=== PATIENT | female | born 1995 | race Caucasian/White ===

== ENCOUNTER → 2016-11-17 | Outpatient (CLI) | payer OTHER ==
[2016-11-17 16:58] LABS: BASO % 0.4 % (0.0-1.0); EOS # 0.1 K/mm3 (0.0-0.50); EOS % 2.2 % (0.0-3.0); LARGE UNSTAINED CELL # 0.1 K/mm3 (0.0-0.4); LARGE UNSTAINED CELL % 1.7 % (0.0-4.0); LYMPH # 2.1 K/mm3 (1.5-6.5); LYMPH % 36.6 % (24.0-44.0); MEAN CORPUSCULAR HEMOGLOBIN 31.7 pg (27.0-33.0); MEAN CORPUSCULAR HGB CONC 33.4 g/dl (32.0-36.5); MEAN CORPUSCULAR VOLUME 94.9 fl (80.0-96.0); MONO # 0.3 K/mm3 (0.0-0.8); MONO % 5.2 % (0.0-5.0); NEUTROPHILS # 2.9 K/mm3 (1.8-7.7); NEUTROPHILS % 53.9 % (36.0-66.0); PLATELET COUNT, AUTOMATED 235 k/mm3 (150-450); RED CELL DISTRIBUTION WIDTH 12.1 % (11.5-14.5); WHITE BLOOD COUNT 5.4 K/mm3 (4.0-10.0)
[2016-11-17 19:11] LABS: FREE T4 0.95 NG/DL (0.76-1.46)
== END ==
LOC: M LAB 16:18
PROVIDERS: ATTEND Obstetrics & Gynecology
DX: N92.1 Excessive and frequent menstruation with irregular cycle (principal)

== ENCOUNTER → 2016-12-04 | Day surgery (SDC) | payer OTHER ==
[~2016-12-04] VITALS: Ht 165.1 cm; Wt 65.8 kg
[~2016-12-04] MED LIST: DICY20TA11 PO; GLYCOPYRROLATE INJ 0.2 MG/ML 2 ML VIAL As Ordered ONE; IBUPROFEN 600 MG TAB PO PRN; KETOROLAC 60 MG/2 ML VIAL (J1885) As Ordered ONE; LIDOCAINE 2% INJ 100 MG/5 ML SDV (FOR ANES.) As Ordered ONE; LR 1,000 ML IV SCH; METOCLOPRAMIDE INJ 10MG/2ML VIAL (J2765) IV PRN; MIDAZOLAM INJ 2 MG/2 ML VIAL (J2250) As Ordered ONE; NEOSTIGMINE 1MG/ML 5 ML SYRINGE (J2710) As Ordered ONE; NORCO, ANEXSIA 5/325MG TABLET (HYDROcodone/ACETAMINOPHEN) PO PRN; ONDANSETRON 4MG/2ML VIAL (J2405) As Ordered ONE; ONDANSETRON 4MG/2ML VIAL (J2405) IV PRN; PERCOCET 5MG/325MG TAB As Ordered ONE; PERCOCET 5MG/325MG TAB PO PRN; PROPOFOL 200 MG/20 ML VIAL As Ordered ONE; PROZ20CA11 PO; ROCURONIUM BROMIDE 50 MG/5 ML VIAL As Ordered ONE; TYLE500T78 PO; XANA1TAB2 PO; dexameTHASONE 4 MG/ML 1ML VIAL (J1100) As Ordered ONE; fentaNYL 100 MCG/2 ML INJECTION (J3010) As Ordered ONE; fentaNYL 250 MCG/5 ML INJECTION (J3010) As Ordered ONE
[2016-12-04 07:46] LABS: CONTROL LINE UCG INT CTR LINE PRESENT
[2016-12-04] MEDS: fentaNYL 100 MCG/2 ML INJECTION (J3010) IV PRN ×4 (10:58→11:19)
--- NOTE | 2016-12-04 12:27 | RO ---
DATE OF PROCEDURE: 12/04/2016 PREPROCEDURE DIAGNOSES/INDICATION FOR SURGERY: Endometriosis history, pain, failed medication therapy. POSTPROCEDURE DIAGNOSES: Endometriosis history, pain, failed medication therapy. PROCEDURE: Robotic resection of endometriotic implants and laser ablation of endometriotic implants. SURGEON: Elizabeth Flores MD SUPERVISOR [employer] ACCOUNTS: Irma Van NP ANESTHESIA: General endotracheal anesthesia. BRIEF DESCRIPTION OF PROCEDURE AND FINDINGS: Uzma went to the operating room where sufficient general endotracheal anesthesia was induced. She was prepped, draped and positioned in the usual sterile fashion with the uterine manipulator placed. The bladder was emptied and attention was turned to the abdomen. A transverse semilunar incision was made over the line of her previous laparoscopic scar. Sharp and blunt dissection were continued through subcutaneous tissues to the level of the rectus fascia, which was elevated with Torin clamp, transversely incised, secured with #0 Vicryl sutures placed and the peritoneum, under direct visualization, was examined using the S retractor and then the Marcellus cannula used for the robot was placed. In open laparoscopic technique, CO2 insufflation was then begun. After adequate CO2 insufflation, the robot camera was used to visualize the peritoneal cavity. The upper abdomen is normal in appearance. We did take a couple of pictures of that as well. The anterior aspect of the lower abdomen was reassuring on the initial view. With Trendelenburg, we were able to see one left sided anterior area of what looked like brownish endometriotic implant. The cul-de-sac, as noted in the pictures, there was extensive evidence of endometriotic lesions and scarring, especially with annular lesions and scarring with what appeared to be fenestration of the peritoneum, very much consistent with endometriosis. There were also some chocolate cyst like material on both ovaries with evidence of what looked like endometriosis there. The ureters were carefully identified. Peristalsis seen and the anatomy mapped out on the right side. There was also a secondary ridge of the peritoneum more proximal to the midline. This was not peristalsing. It was also not pulsing. I am not sure if she has some sort of tissue in it. I did find slightly higher than normal on the side wall a ureter but this came down right through the branch of the vessels, as expected with the ureter, so although it coursed along the sidewalls a little bit more toward the ceiling than would be typically expected. It certainly originated at the pelvic brim in a totally normal spot. More posteriorly there was a secondary ridge that was not pulsing, so it did not appear to be vascular. It was not peristalsing either, but since we could see this change, we were careful not to injure that area as well. She does not have any previous films indicating anything unusual about that and she does have a previous pelvic sono that is relatively reassuring that it was a cyst. The PK and the scissors were used carefully to elevate, transect, and then cauterize as necessary any bleeding areas or areas of peritoneum over the cul-de-sac. We were careful not to disrupt the uterosacral ligaments themselves since of course she needs those. We were careful not to interrupt the peritoneum over the ureters. There were some areas where we simply pulled the peritoneum medially and we were able to then use the laser over that but first we resected in the cul-de-sac, which is where the majority of the endometriosis appeared to be. Having resected a large area and not wanting to completely denude the cul-de-sac, we then switched out to laser and used it in a fairly broad area over the cul-de-sac itself because of the extent of the endometriotic lesions. We then used it over the uterosacral as well. Again, over any other peritoneal implants. We were careful to shift the peritoneum so that we did not have any important structures as our backdrop. We were also careful to pay attention to the location of the bowel and bladder, and of course the ureters, and also to the tubes because there were some areas on the ovaries and we cauterized those, but we were careful to avoid any injury to the tubes, which are totally normal in appearance. We also laser ablated the area in the anterior broad ligament on the left as well, but again we were careful to identify the location of the ureter before we went there and to shift this medially and cephalad so as to avoid bladder and ureter there as well. After we had resected the amount of endometriosis that we could and then laser ablated the rest, we then ended the procedure with the CO2 allowed to escape the abdomen. The instruments removed. Uzma was removed from Trendelenburg. I then closed the facial wound at the umbilicus with #0 Vicryl retention sutures and the skin at all four wounds was closed with #3-0 Vicryl in a subcuticular stitch. Dry sterile dressings were applied. Estimated blood loss for the procedure was about 5 mL. Fluid replacement was Crystalloid. Complications: None. SPECIMEN: Endometriotic implants. CONDITION AND DISPOSITION: Uzma tolerated the procedure well and was recovering in the recovery room in good condition.
[2016-12-04 13:30] VITALS: BP 125/69
== END | disposition home or self-care (01) ==
LOC: M SDC 07:08
PROVIDERS: ATTEND Obstetrics & Gynecology
DX: N80.9 Endometriosis, unspecified (principal); F32.9 Major depressive disorder, single episode, unspecified; F41.9 Anxiety disorder, unspecified; M41.9 Scoliosis, unspecified; M51.9 Unspecified thoracic, thoracolumbar and lumbosacral intervertebral disc disorder; G43.909 Migraine, unspecified, not intractable, without status migrainosus; R06.83 Snoring; F17.210 Nicotine dependence, cigarettes, uncomplicated; Z88.1 Allergy status to other antibiotic agents; Z88.2 Allergy status to sulfonamides; Z88.8 Allergy status to other drugs, medicaments and biological substances; Z79.899 Other long term (current) drug therapy

== ENCOUNTER → 2017-02-03 | Outpatient (CLI) | payer OTHER ==
[~2017-02-03] MED LIST changes: -GLYCOPYRROLATE INJ 0.2 MG/ML 2 ML VIAL As Ordered ONE; +IBUP80TA PO; -IBUPROFEN 600 MG TAB PO PRN; -KETOROLAC 60 MG/2 ML VIAL (J1885) As Ordered ONE; -LIDOCAINE 2% INJ 100 MG/5 ML SDV (FOR ANES.) As Ordered ONE; -LR 1,000 ML IV SCH; -METOCLOPRAMIDE INJ 10MG/2ML VIAL (J2765) IV PRN; -MIDAZOLAM INJ 2 MG/2 ML VIAL (J2250) As Ordered ONE; -NEOSTIGMINE 1MG/ML 5 ML SYRINGE (J2710) As Ordered ONE; +NORC1TAB4 PO; -NORCO, ANEXSIA 5/325MG TABLET (HYDROcodone/ACETAMINOPHEN) PO PRN; +OMEP10CASR PO; -ONDANSETRON 4MG/2ML VIAL (J2405) As Ordered ONE; -ONDANSETRON 4MG/2ML VIAL (J2405) IV PRN; -PERCOCET 5MG/325MG TAB As Ordered ONE; -PERCOCET 5MG/325MG TAB PO PRN; -PROPOFOL 200 MG/20 ML VIAL As Ordered ONE; -ROCURONIUM BROMIDE 50 MG/5 ML VIAL As Ordered ONE; -dexameTHASONE 4 MG/ML 1ML VIAL (J1100) As Ordered ONE; -fentaNYL 100 MCG/2 ML INJECTION (J3010) As Ordered ONE; -fentaNYL 250 MCG/5 ML INJECTION (J3010) As Ordered ONE
[2017-02-03 13:45] LABS: BASO % 0.7 % (0.0-1.0); EOS # 0.2 K/mm3 (0.0-0.50); EOS % 3.1 % (0.0-3.0); LARGE UNSTAINED CELL # 0.1 K/mm3 (0.0-0.4); LYMPH # 1.6 K/mm3 (1.5-6.5); MEAN CORPUSCULAR HEMOGLOBIN 31.9 pg (27.0-33.0); MEAN CORPUSCULAR HGB CONC 33.5 g/dl (32.0-36.5); MEAN CORPUSCULAR VOLUME 95.2 fl (80.0-96.0); MONO # 0.5 K/mm3 (0.0-0.8); MONO % 6.5 % (0.0-5.0); NEUTROPHILS # 4.7 K/mm3 (1.8-7.7); NEUTROPHILS % 65.7 % (36.0-66.0); PLATELET COUNT, AUTOMATED 218 k/mm3 (150-450); RED CELL DISTRIBUTION WIDTH 12.3 % (11.5-14.5); WHITE BLOOD COUNT 7.1 K/mm3 (4.0-10.0)
== END ==
LOC: M LAB 12:11
PROVIDERS: ATTEND Nurse Practitioner Women's Health
DX: R10.32 Left lower quadrant pain (principal)

== ENCOUNTER 2017-04-19 07:00 | Emergency (ER) | payer OTHER ==
[~2017-04-19] VITALS: Ht 165.1 cm; Wt 72.7 kg
[~2017-04-19 07:00] MED LIST changes: -IBUP80TA PO; -NORC1TAB4 PO; -OMEP10CASR PO
[2017-04-19] MEDS ORDERED: NORC1TAB4 PO (07:14)
[2017-04-19] MEDS ORDERED: OMEP10CASR PO (07:14)
[2017-04-19] MEDS ORDERED: HYDROmorphone HCL 1 MG/ML SYRINGE (J1170) IV PRN (07:45)
[2017-04-19] MEDS ORDERED: NS 1,000 ML IV ONE (07:45)
[2017-04-19] MEDS ORDERED: ONDANSETRON 4MG/2ML VIAL (J2405) IV ONE (07:45)
[2017-04-19 08:30] LABS: BASO % 0.5 % (0.0-1.0); EOS # 0.3 10^3/uL (0.0-0.50); EOS % 4.3 % (0.0-3.0); IMMATURE GRANULOCYTE % 0.1 % (0-0); LYMPH % 40.8 % (24.0-44.0); MEAN CORPUSCULAR HEMOGLOBIN 31.1 pg (27.0-33.0); MEAN CORPUSCULAR HGB CONC 32.6 g/dl (32.0-36.5); MEAN CORPUSCULAR VOLUME 95.3 fl (80.0-96.0); MONO # 0.5 10^3/uL (0.0-0.8); MONO % 6.1 % (0.0-5.0); NEUTROPHILS # 3.5 10^3/uL (1.8-7.7); NEUTROPHILS % 48.2 % (36.0-66.0); PLATELET COUNT, AUTOMATED 217 10^3/uL (150-450); RED CELL DISTRIBUTION WIDTH 11.7 % (11.5-14.5); WHITE BLOOD COUNT 7.4 10^3/uL (4.0-10.0)
[2017-04-19 08:35] LABS: ADD MANUAL DIFFER NO; DIFF SLIDE NUMBER 100
[2017-04-19 08:52] LABS: ALBUMIN 3.7 GM/DL (3.2-5.2); ALBUMIN/GLOBULIN RATIO 1.23 (1.00-1.93); ALKALINE PHOSPHATASE 72 U/L (45-117); ALT/SGPT 27 U/L (12-78); ANION GAP 5 MEQ/L (8-16); AST/SGOT 16 U/L (15-37); BILIRUBIN,DIRECT < 0.1 MG/DL (0.0-0.2); BILIRUBIN,TOTAL 0.1 MG/DL (0.2-1.0); BLOOD UREA NITROGEN 10 MG/DL (7-18); CALCIUM LEVEL 8.7 MG/DL (8.5-10.1); CARBON DIOXIDE LEVEL 27 MEQ/L (21-32); CHLORIDE LEVEL 107 MEQ/L (98-107); CREATININE FOR GFR 0.65 MG/DL (0.55-1.02); GLOMERULAR FILTRATION RATE > 60.0 (>60); GLUCOSE, FASTING 124 MG/DL (70-105); POTASSIUM SERUM 3.7 MEQ/L (3.5-5.1); SODIUM LEVEL 139 MEQ/L (136-145); TOTAL PROTEIN 6.7 GM/DL (6.4-8.2)
[2017-04-19] MEDS ORDERED: IBUP80TA PO (09:15)
[2017-04-19 09:16] VITALS: BP 105/58
--- NOTE | 2017-04-19 11:41 | REP ---
REASON: Left-sided pain. COMPARISON: 01/09/2016 Transvesical and transvaginal imaging was obtained. The uterus measures 7.3 x 2.2 x 5.1 cm. The parenchymal echo pattern is within normal limits. The endometrial echo complex is unremarkable appearing measuring 1.6 cm in thickness. There is minimal free fluid in the cul-de-sac. Right ovary measures 3.1 x 1.7 x 1.2 cm and is within normal limits with an RI of 0.63. Left ovary measures 2.6 x 1.9 x 2.7 cm and is within normal limits with a RI of 0.7. IMPRESSION: Essentially unremarkable pelvic ultrasound. There is a small amount of free fluid in the cul-de-sac which is probably physiologic. Signed by Mario Rg DO 04/19/2017 10:01 A
== END 2017-04-19 09:17 | disposition home or self-care (01) ==
LOC: M ED 07:00
DX: N83.292 Other ovarian cyst, left side (principal); R10.2 Pelvic and perineal pain; N80.9 Endometriosis, unspecified; F99 Mental disorder, not otherwise specified; F17.200 Nicotine dependence, unspecified, uncomplicated; Z79.899 Other long term (current) drug therapy; Z88.0 Allergy status to penicillin; Z88.2 Allergy status to sulfonamides; Z88.1 Allergy status to other antibiotic agents
CPT/HCPCS: 76830; 76856; 80048; 80076; 81001; 81025; 83690; 85025; 87086; 93976; 96374; 96375; 99283; J1170; J2405

== ENCOUNTER → 2017-08-06 | Outpatient (CLI) | payer OTHER ==
[2017-08-06 15:00] LABS: HEMATOCRIT 45.9 % (36.0-47.0); MEAN CORPUSCULAR HEMOGLOBIN 30.5 pg (27.0-33.0); MEAN CORPUSCULAR HGB CONC 32.7 g/dl (32.0-36.5); MEAN CORPUSCULAR VOLUME 93.5 fl (80.0-96.0); PLATELET COUNT, AUTOMATED 278 10^3/uL (150-450); RED BLOOD COUNT 4.91 10^6/uL (4.00-5.40); RED CELL DISTRIBUTION WIDTH 11.7 % (11.5-14.5); WHITE BLOOD COUNT 8.9 10^3/uL (4.0-10.0)
[2017-08-06 15:58] LABS: ALBUMIN 4.7 GM/DL (3.2-5.2); ALBUMIN/GLOBULIN RATIO 1.34 (1.00-1.93); ALKALINE PHOSPHATASE 121 U/L (45-117); ALT/SGPT 48 U/L (12-78); ANION GAP 6 MEQ/L (8-16); AST/SGOT 28 U/L (7-37); BILIRUBIN,TOTAL 0.4 MG/DL (0.2-1.0); BLOOD UREA NITROGEN 7 MG/DL (7-18); CALCIUM LEVEL 9.5 MG/DL (8.5-10.1); CARBON DIOXIDE LEVEL 29 MEQ/L (21-32); CHLORIDE LEVEL 106 MEQ/L (98-107); CHOLESTEROL LEVEL 168 MG/DL (<200); CHOLESTEROL RISK RATIO 2.545 (<5); CREATININE FOR GFR 0.76 MG/DL (0.55-1.02); GLOMERULAR FILTRATION RATE > 60.0 (>60); GLUCOSE, FASTING 90 MG/DL (70-100); HDL CHOLESTEROL 66 MG/DL (>40); LDL CHOLESTEROL 79.2 MG/DL (<100); NON-HDL-C 102 MG/DL; POTASSIUM SERUM 4.4 MEQ/L (3.5-5.1); SODIUM LEVEL 141 MEQ/L (136-145); TOTAL PROTEIN 8.2 GM/DL (6.4-8.2); TRIGLYCERIDES LEVEL 114 MG/DL (<150)
[2017-08-06 16:10] LABS: ESTIMATED AVERAGE GLUCOSE 103 MG/DL (60-110); HEMOGLOBIN A1c 5.2 %
== END ==
LOC: M LAB 14:20
DX: R53.83 Other fatigue (principal)
CPT/HCPCS: 84443

== ENCOUNTER → 2017-08-11 | Outpatient (CLI) | payer OTHER ==
[~2017-08-11] MED LIST changes: -DICY20TA11 PO; +PROHANCE 279.3MG/ML 15ML VIAL (A9576) As Ordered; -PROZ20CA11 PO; -TYLE500T78 PO; -XANA1TAB2 PO
== END ==
LOC: M RAD 12:56
DX: R51 Headache (principal); R42 Dizziness and giddiness
CPT/HCPCS: A9576

== ENCOUNTER → 2017-09-09 | Outpatient (REF) | payer OTHER ==
[2017-09-09 14:36] LABS: PROLACTIN 7.5 NG/ML
== END ==
LOC: M LABNEURO 10:28
DX: D35.2 Benign neoplasm of pituitary gland (principal)
CPT/HCPCS: 84146

== ENCOUNTER 2017-12-04 11:22 | Outpatient (CLI) | payer OTHER ==
[2017-12-05 09:55] LABS: ANION GAP 5 MEQ/L (8-16); BLOOD UREA NITROGEN 8 MG/DL (7-18); CARBON DIOXIDE LEVEL 28 MEQ/L (21-32); CHLORIDE LEVEL 106 MEQ/L (98-107); CREATININE FOR GFR 0.73 MG/DL (0.55-1.30); GLOMERULAR FILTRATION RATE > 60.0 (>60); GLUCOSE, FASTING 89 MG/DL (70-100); SODIUM LEVEL 139 MEQ/L (136-145)
[2017-12-07 10:56] LABS: PROLACTIN 10.1 NG/ML
[2017-12-07 10:57] LABS: FOLLICLE STIMULATING HORMONE 4.9 mIU/mL; LUTEINIZING HORMONE 4.9 mIU/mL
[2017-12-09 17:41] LABS: ESTROGENS TOTAL 199 pg/mL (.)
[2017-12-09 17:41] LABS: SOMATOMEDIN-C INSULIN GROWTH 301 ng/mL (93-342)
== END 2017-12-05 ==
LOC: M LAB 11:22
DX: D49.7 Neoplasm of unspecified behavior of endocrine glands and other parts of nervous system (principal)
CPT/HCPCS: 83001

== ENCOUNTER 2018-03-26 16:44 | Emergency (ER) | payer OTHER ==
[2018-03-26] MEDS: NS 1,000 ML IV (18:27)
[2018-03-26] MEDS: MORPHINE 4 MG/ML 1ML VIAL/SYRINGE (J2270) IV (18:29)
[2018-03-26] MEDS: ONDANSETRON 4MG/2ML VIAL (J2405) IV (18:29)
[2018-03-26 18:30] LABS: BASO % 0.4 % (0.0-1.0); EOS # 0.3 10^3/uL (0.0-0.50); EOS % 2.9 % (0.0-3.0); HEMOGLOBIN 13.5 g/dl (12.0-15.5); IMMATURE GRANULOCYTE % 0.3 % (0-3.0); LYMPH # 2.7 10^3/uL (1.5-6.5); LYMPH % 26.5 % (24.0-44.0); MEAN CORPUSCULAR HGB CONC 32.9 g/dl (32.0-36.5); MONO # 0.5 10^3/uL (0.0-0.8); MONO % 5.3 % (0.0-5.0); NEUTROPHILS # 6.5 10^3/uL (1.8-7.7); NEUTROPHILS % 64.6 % (36.0-66.0); PLATELET COUNT, AUTOMATED 287 10^3/uL (150-450); RED BLOOD COUNT 4.36 10^6/uL (4.00-5.40); RED CELL DISTRIBUTION WIDTH 11.6 % (11.5-14.5)
[2018-03-26 18:43] LABS: KETONE, URINE AUTO RFX NEGATIVE (NEGATIVE); LEUKOCYTE ESTERASE UR AUTO RFX NEGATIVE (NEGATIVE); MUCUS, URINE RFX SMALL (NEGATIVE); NITRITE, URINE AUTO RFX NEGATIVE (NEGATIVE); RBC, URINE AUTO RFX 2 /HPF (0-3); SPECIFIC GRAVITY UR AUTO RFX 1.017 (1.002-1.035); SQUAM EPITHELIAL CELL UR AURFX 1 /HPF (0-6); WBC, URINE AUTO RFX 1 /HPF (0-3)
[2018-03-26 18:44] LABS: ALBUMIN 4.4 GM/DL (3.2-5.2); ALBUMIN/GLOBULIN RATIO 1.19 (1.00-1.93); ALKALINE PHOSPHATASE 117 U/L (45-117); ALT/SGPT 56 U/L (12-78); ANION GAP 7 MEQ/L (8-16); AST/SGOT 24 U/L (7-37); BILIRUBIN,DIRECT < 0.1 MG/DL (0.0-0.2); BILIRUBIN,TOTAL 0.2 MG/DL (0.2-1.0); BLOOD UREA NITROGEN 7 MG/DL (7-18); CALCIUM LEVEL 9.1 MG/DL (8.5-10.1); CARBON DIOXIDE LEVEL 26 MEQ/L (21-32); CHLORIDE LEVEL 109 MEQ/L (98-107); CREATININE FOR GFR 0.72 MG/DL (0.55-1.30); GLOMERULAR FILTRATION RATE > 60.0 (>60); GLUCOSE, FASTING 89 MG/DL (70-100); LIPASE 87 U/L (73-393); POTASSIUM SERUM 3.8 MEQ/L (3.5-5.1); SODIUM LEVEL 142 MEQ/L (136-145); TOTAL PROTEIN 8.1 GM/DL (6.4-8.2)
[2018-03-26] MEDS ORDERED: ISOVUE-370 76% 100ML VIAL (Q9967) As Ordered (18:52)
== END 2018-03-26 20:09 | disposition home or self-care (01) ==
LOC: M ED 16:44
DX: K52.9 Noninfective gastroenteritis and colitis, unspecified (principal); K21.9 Gastro-esophageal reflux disease without esophagitis; R51 Headache; K50.90 Crohn's disease, unspecified, without complications; D64.9 Anemia, unspecified; F41.9 Anxiety disorder, unspecified; F32.9 Major depressive disorder, single episode, unspecified; Z87.42 Personal history of other diseases of the female genital tract; F17.210 Nicotine dependence, cigarettes, uncomplicated; Z88.1 Allergy status to other antibiotic agents; Z88.2 Allergy status to sulfonamides; Z79.899 Other long term (current) drug therapy
CPT/HCPCS: J2270

== ENCOUNTER 2018-06-01 07:35 | Day surgery (SDC) | payer OTHER ==
[2018-06-01] MEDS: NS 1,000 ML IV (06:00)
[2018-06-01] MEDS ORDERED: LIDOCAINE 2% INJ 100 MG/5 ML SDV (FOR ANES.) As Ordered (07:53)
[2018-06-01] MEDS ORDERED: PROPOFOL 200 MG/20 ML VIAL As Ordered ×2 (07:54→09:25)
== END 2018-06-01 10:17 | disposition home or self-care (01) ==
LOC: M OPP 07:35
DX: R93.3 Abnormal findings on diagnostic imaging of other parts of digestive tract (principal); R19.7 Diarrhea, unspecified; K64.8 Other hemorrhoids
CPT/HCPCS: 45380

== ENCOUNTER 2018-09-09 05:46 | Day surgery (SDC) | payer OTHER ==
[~2018-09-09] VITALS: Ht 165.1 cm; Wt 72.6 kg
[~2018-09-09 05:46] MED LIST changes: +CIPR-249 PO; +DICY20TA11 PO; +FLAG500T PO; +GABA-843 PO; +IBUP200T45 PO; +IBUP80TA PO; +NORC1TAB4 PO; +OMEP10CASR PO; -PROHANCE 279.3MG/ML 15ML VIAL (A9576) As Ordered; +PROZ20CA11 PO; +TYLE500T78 PO; +XANA1TAB2 PO; +ZOFR4TAB14 PO
[2018-09-09] MEDS ORDERED: LR 1,000 ML IV ONE (06:00)
[2018-09-09 06:49] LABS: HCG, SERUM QUALITATIVE NEGATIVE (NEGATIVE)
[2018-09-09] MEDS ORDERED: LIDOCAINE 2% INJ 100 MG/5 ML SDV (FOR ANES.) As Ordered ONE (08:13)
[2018-09-09] MEDS ORDERED: PROPOFOL 200 MG/20 ML VIAL As Ordered ONE ×2 (08:13→10:53)
[2018-09-09] MEDS ORDERED: MIDAZOLAM INJ 2 MG/2 ML VIAL (J2250) As Ordered ONE (08:13)
[2018-09-09] MEDS ORDERED: ROCURONIUM BROMIDE 50 MG/5 ML VIAL As Ordered ONE (08:13)
[2018-09-09] MEDS ORDERED: fentaNYL 250 MCG/5 ML INJECTION (J3010) As Ordered ONE (08:13)
[2018-09-09] MEDS ORDERED: ONDANSETRON 4MG/2ML VIAL (J2405) As Ordered ONE (08:15)
[2018-09-09] MEDS ORDERED: dexameTHASONE 4 MG/ML 1ML VIAL (J1100) As Ordered ONE (08:15)
[2018-09-09] MEDS ORDERED: HYDROmorphone HCL 2 MG/ML 1ML VIAL (J1170) As Ordered ONE (08:15)
[2018-09-09] MEDS ORDERED: KETOROLAC 60 MG/2 ML VIAL (J1885) As Ordered ONE (08:15)
[2018-09-09] MEDS ORDERED: ESMOLOL INJ 100MG/10ML VIAL As Ordered ONE (08:30)
[2018-09-09] MEDS ORDERED: GLYCOPYRROLATE INJ 0.2 MG/ML 2 ML VIAL As Ordered ONE (08:52)
[2018-09-09] MEDS ORDERED: NEOSTIGMINE 10 MG/10 ML VIAL (J2710) As Ordered ONE (08:52)
[2018-09-09] MEDS ORDERED: METHYLENE BLUE 0.5% (5MG/ML) 10 ML AMP (PROVAYBLUE)(Q9968 PER 1MG) As Ordered ONE (09:22)
[2018-09-09] MEDS ORDERED: fentaNYL 100 MCG/2 ML INJECTION (J3010) As Ordered ONE (10:46)
[2018-09-09] MEDS: fentaNYL 100 MCG/2 ML INJECTION (J3010) IV PRN ×4 (10:49→11:04)
[2018-09-09] MEDS ORDERED: KETOROLAC 30 MG/ML VIAL (J1885) IV PRN (11:00)
[2018-09-09] MEDS ORDERED: MEPERIDINE INJ 25 MG/ML VIAL (J2175) IV PRN (11:00)
[2018-09-09] MEDS ORDERED: ONDANSETRON 4MG/2ML VIAL (J2405) IV PRN (11:00)
[2018-09-09] MEDS ORDERED: METOCLOPRAMIDE INJ 10MG/2ML VIAL (J2765) IV PRN (11:00)
[2018-09-09] MEDS ORDERED: NORCO, ANEXSIA 5/325MG TABLET (HYDROcodone/ACETAMINOPHEN) PO PRN (11:00)
[2018-09-09] MEDS ORDERED: LR 1,000 ML IV SCH ×2 (11:00)
[2018-09-09] MEDS: PERCOCET 5MG/325MG TAB PO PRN ×2 (11:12→11:42)
[2018-09-09 12:00] VITALS: BP 111/56
--- NOTE | 2018-09-09 13:23 | RO ---
DATE OF SURGERY: 09/09/2018 PREOPERATIVE DIAGNOSES: Pain and endometriosis. POSTOPERATIVE DIAGNOSES: Pain and endometriosis. FINDINGS: Endometriosis. Also, lack of peristalsis initially of right ureter leading to additional concern regarding the urologic system. PROCEDURE: Laparoscopy, resection and laser destruction of endometriotic implants, and cystourethroscopy. SURGEON: Elizabeth Flores MD WATER PROOFER: IAN Marie ANESTHESIA: General endotracheal anesthesia. BRIEF DESCRIPTION OF PROCEDURE AND FINDINGS: Uzma was brought to the operating room, where sufficient general endotracheal anesthesia was induced, and she was prepped and draped and positioned in the usual sterile fashion, and a uterine manipulator was placed. Attention was turned to the abdomen, where a transverse semilunar incision was made at the umbilicus. Sharp and blunt dissection continued through subcutaneous tissues to the level of the rectus fascia, which was elevated with Torin clamps, transversely incised, secured with 0 Vicryl retention suture, and then the peritoneal cavity entered under direct visualization with the Marcellus cannula in place after 0 Vicryl retention sutures had also been placed. CO2 insufflation was then begun, and the peritoneal cavity was visualized. After adequate CO2 insufflation, the peritoneal cavity was visualized, and there were normal shiny peritoneal surfaces throughout the upper abdomen; and in the lower abdomen, there was no excrescence, ascites, or exudate, but there were multiple endometriotic implants and puckering of the peritoneum consistent with endometriosis. There were also endometriotic implants over the ovaries bilaterally. The tubes were normal in appearance. The small intestine was normal in appearance. The descending colon was normal in appearance. Over the posterior cul-de-sac over the peritoneum of this, there were endometriotic implants but not on the actual colon itself, uterosacrals not multiple implants, and the pelvic sidewall had implants. With observation and elevation of the uterus using the uterine manipulator, we were able to see normal peristalsis of the left ureter and carefully delineate its course. We saw what appeared to be the right ureter, and we were not able to see any peristalsis. We were not able to find a different organ that appeared to be the ureter, and we did not have implants directly on this organ, this tubular structure that we felt was ureter but was not peristalsing, and there was some scar tissue more inferiorly consistent with the patient's previous surgery for endometriosis; and so, there was concern regarding the function of this ureter. So, a decision was made to add due to this abnormal finding the additional procedure of cystourethroscopy. Fortunately, we were able at this point to continue with the surgery. We placed the two left and the one right-sided arm ports for the robot surgery, and then I went to work at the console; and we used the cold scissors without cautery to dissect out the endometriotic implants over the cul-de-sac; and so, we did leave a raw space here that was deperitonealized, but it also had the endometriosis removed. There was some scarring over the uterosacrals, and I did not want to excise the entire uterosacrals. So, in the areas where we could get the implants and peritoneum free, we resected them. So, along the left sidewall, along the right sidewall, in the cul-de-sac, we resected multiple implants of endometriosis; and those were sent for pathology. We then used the laser to laser those areas that were not over bowel or ureter and were scarred more, and we lasered those endometriotic implants. We also lasered the endometriotic implants in the ovaries. Again, the tubes were clear, and we were able to get all the lesions that we were able to visualize. Obviously, with endometriosis is microscopic change, but we were able to resect this. We did not have to use cautery in the resection really because much of this is superficial work, and we did not have any lesions anteriorly. So, the anterior cul-de-sac was clear, did not have any lesions in the upper abdomen. This was really all focused in this area. There were multiple pictures taken to document our progress; and after we had either resected or removed the implants we could find, we finished up with the laser, brought the patient out of her Trendelenburg, and then did a cystourethroscopy. At cystourethroscopy, we noticed a normal contour to the bladder. There did not appear to be any scarring or abnormality of the bladder wall. There were floating sort-of inflammatories or floaties in the bladder, which is sometimes seen with stones. I do not know if this is related to that or if perhaps it is just related to her not drinking overnight, but even after we flushed the bladder out a couple times, there was still some of this detritus floating within the bladder. So, it is a little suspicious that there may be a stone history but certainly not diagnostic. We were able to do a circumferential 360-degree evaluation of the bladder and not see any evidence of endometriosis or other such implants. We did see normal jets of urine from both ureters. So, even though I could not see good peristalsis laparoscopically, watching cystoscopy I could see a normal jet of urine come from both ureters readily. I could see a normal trigone. I could see a normal urethra. So, after cystourethroscopy, we turned out attention back to closure of the wounds. The instruments were removed, and wounds were closed, the fascial wound at the umbilicus closed with 0 Vicryl retention sutures, and the skin and all four sites closed with 3-0 Vicryl on a subcuticular needle. Dry sterile dressings were then applied. Estimated blood loss for the procedure was about 8 mL. Fluid replacement was crystalloid. COMPLICATIONS: None. CONDITION AND DISPOSITION: Uzma tolerated the procedure well and was recovering in the recovery room in good condition.
[2018-09-09] MEDS ORDERED: IBUPROFEN 600 MG TAB PO PRN (18:00)
== END 2018-09-09 12:42 | disposition home or self-care (01) ==
LOC: M SDC 05:46
PROVIDERS: ATTEND Obstetrics & Gynecology
DX: R10.2 Pelvic and perineal pain (principal); N80.0 Endometriosis of uterus; F32.9 Major depressive disorder, single episode, unspecified; F41.9 Anxiety disorder, unspecified; G43.909 Migraine, unspecified, not intractable, without status migrainosus; K58.9 Irritable bowel syndrome, unspecified; R12 Heartburn; M54.9 Dorsalgia, unspecified; L30.9 Dermatitis, unspecified; R06.83 Snoring; M41.9 Scoliosis, unspecified; Z88.1 Allergy status to other antibiotic agents; Z88.2 Allergy status to sulfonamides; Z79.899 Other long term (current) drug therapy; Z72.0 Tobacco use
CPT/HCPCS: 36415; 52000; 58662; 84703; 88305; J0690; J1100; J1170; J1885; J2250; J2405; J2710; J3010; Q9968

== ENCOUNTER 2018-09-17 16:07 | Emergency (ER) | payer OTHER ==
[~2018-09-17] VITALS: Ht 165.1 cm; Wt 72.1 kg
[2018-09-17] MEDS ORDERED: IBUP-1022 (16:24)
[2018-09-17] MEDS ORDERED: HYDROCODONE-ACETAMIN (16:24)
[2018-09-17] MEDS ORDERED: DOXY100C37 PO (17:30)
[2018-09-17] MEDS ORDERED: NEOSPORIN OINT 0.9 GM PKT (FLOOR STOCK) TOP ONE (17:30)
[2018-09-17] MEDS ORDERED: ADACEL/BOOSTRIX VACCINE (DIPHTH/PERTUSS/ACELL/TETANUS)0.5ML SYR (90715) IM ONE (17:30)
[2018-09-17 17:55] VITALS: BP 129/83
== END 2018-09-17 17:56 | disposition home or self-care (01) ==
LOC: M ED 16:07
DX: S60.511A Abrasion of right hand, initial encounter (principal); S60.512A Abrasion of left hand, initial encounter; W55.01XA Bitten by cat, initial encounter; Y92.099 Unspecified place in other non-institutional residence as the place of occurrence of the external cause; Y93.89 Activity, other specified; Y99.9 Unspecified external cause status; Z72.0 Tobacco use; Z79.899 Other long term (current) drug therapy; Z88.0 Allergy status to penicillin; Z88.2 Allergy status to sulfonamides; Z88.8 Allergy status to other drugs, medicaments and biological substances

== ENCOUNTER → 2018-10-06 | Outpatient (CLI) | payer OTHER ==
[~2018-10-06] MED LIST changes: +DOXY100C37 PO; +HYDROCODONE-ACETAMIN; +IBUP-1022
[2018-10-06 14:14] LABS: HEMATOCRIT 42.1 % (36.0-47.0); HEMOGLOBIN 13.5 g/dl (12.0-15.5); MEAN CORPUSCULAR HEMOGLOBIN 30.8 pg (27.0-33.0); MEAN CORPUSCULAR HGB CONC 32.1 g/dl (32.0-36.5); MEAN CORPUSCULAR VOLUME 95.9 fl (80.0-96.0); PLATELET COUNT, AUTOMATED 224 10^3/uL (150-450); RED BLOOD COUNT 4.39 10^6/uL (4.00-5.40); WHITE BLOOD COUNT 7.5 10^3/uL (4.0-10.0)
[2018-10-06 14:35] LABS: HEMOGLOBIN A1c 5.1 %
[2018-10-06 14:44] LABS: ALBUMIN 4.2 GM/DL (3.2-5.2); ALT/SGPT 69 U/L (12-78); BILIRUBIN,TOTAL 0.3 MG/DL (0.2-1.0); BLOOD UREA NITROGEN 6 MG/DL (7-18); CARBON DIOXIDE LEVEL 27 MEQ/L (21-32); CHLORIDE LEVEL 108 MEQ/L (98-107); CHOLESTEROL LEVEL 179 MG/DL (<200); CHOLESTEROL RISK RATIO 2.796 (<5); CREATININE FOR GFR 0.68 MG/DL (0.55-1.30); GLOMERULAR FILTRATION RATE > 60.0 (>60); GLUCOSE, FASTING 90 MG/DL (70-100); HDL CHOLESTEROL 64 MG/DL (>40); LDL CHOLESTEROL 81 MG/DL (<100); NON-HDL-C 115 MG/DL; POTASSIUM SERUM 4.3 MEQ/L (3.5-5.1); RHEUMATOID FACTOR QUANT < 10.0 IU/ML (<15.0); SODIUM LEVEL 140 MEQ/L (136-145); TRIGLYCERIDES LEVEL 171 MG/DL (<150)
[2018-10-06 14:45] LABS: ERYTHROCYTE SEDIMENTATION RATE 3 mm/hr (0-20)
[2018-10-06 14:46] LABS: TOTAL 25(OH) VITAMIN D 13.9 NG/ML (30.0-100.0)
[2018-10-07 14:21] LABS: ANTINUCLEAR ANTIBODIES DIRECT Negative (Negative)
== END ==
LOC: M LAB 13:49
PROVIDERS: ATTEND Family Medicine
DX: D64.9 Anemia, unspecified (principal); R53.83 Other fatigue; E03.9 Hypothyroidism, unspecified

== ENCOUNTER → 2018-10-13 | Outpatient (CLI) | payer OTHER ==
[~2018-10-13] MED LIST changes: -NORC1TAB4 PO; +NORC1TAB7 PO; +PROHANCE 279.3MG/ML 15ML VIAL (A9576) As Ordered ONE
--- NOTE | 2018-10-14 08:46 | REP ---
MR BRAIN WITHOUT AND WITH CONTRAST: HISTORY: Pituitary cyst. CONTRAST: ProHance 7 mL. COMPARISON: 08/11/2017. There are no areas of abnormal signal intensity in the brain parenchyma. There is no intraparenchymal hemorrhage, infarct, or midline shift. The ventricular system is normal in appearance. There is no extracerebral collection. A cystic lesion is present in the sella turcica. The cyst measures 1.7 cm in transverse by 1.4 cm in AP by 1.7 cm in cephalocaudal dimensions is unchanged in size compared to the previous study. There is posterior displacement of the pituitary gland and infundibulum. There is minimal displacement of the infundibulum to the right. There is extension of the cystic lesion into the suprasellar cistern. There is minimal superior displacement of the optic chiasm. There is no optic chiasm compression. The cavernous sinuses are normal in appearance. The sinuses are clear. IMPRESSION: There has been no change in size of the cystic pituitary lesion compared to the previous study. 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 Electronically Signed by Blayne Singh MD 10/14/2018 08:59 A
== END ==
LOC: M RAD 16:12
PROVIDERS: ATTEND Family Medicine
DX: E23.6 Other disorders of pituitary gland (principal)
CPT/HCPCS: 70553; A9576

== ENCOUNTER → 2018-12-17 | Outpatient (CLI) | payer OTHER ==
[~2018-12-17] MED LIST changes: -PROHANCE 279.3MG/ML 15ML VIAL (A9576) As Ordered ONE
[2018-12-17 12:00] LABS: CORTISOL AM 19.2 UG/DL (4.3-22.4); PROLACTIN 13.1 NG/ML
== END ==
LOC: M LAB 09:58
PROVIDERS: ATTEND Nurse Practitioner Family
DX: D49.7 Neoplasm of unspecified behavior of endocrine glands and other parts of nervous system (principal)

== ENCOUNTER → 2019-06-01 | Outpatient (REF) | payer OTHER ==
[2019-06-01 18:42] LABS: AMORPHOUS SEDIMENT LARGE (NEGATIVE); BACTERIA, URINE AUTO NEGATIVE (NEGATIVE); BILIRUBIN, URINE AUTO NEGATIVE (NEGATIVE); BLOOD, URINE BLOOD 1+ (NEGATIVE); COLOR, URINE AMBER (YELLOW); GLUCOSE, URINE (UA) AUTO NEGATIVE (NEGATIVE); KETONE, URINE AUTO NEGATIVE (NEGATIVE); LEUKOCYTE ESTERASE, URINE AUTO NEGATIVE (NEGATIVE); MUCUS, URINE LARGE (NEGATIVE); NITRITE, URINE AUTO NEGATIVE (NEGATIVE); PROTEIN, URINE AUTO NEGATIVE (NEGATIVE); RBC, URINE AUTO 0 /HPF (0-3); SPECIFIC GRAVITY URINE AUTO 1.028 (1.002-1.035); SQUAMOUS EPITHELIAL CELL UR AU 2 /HPF (0-6); UROBILINOGEN, URINE AUTO 0.2 mg/dL (0.0-2.0); WBC, URINE AUTO 0 /HPF (0-3)
[2019-06-02 07:30] LABS: APPEARANCE, URINE TURBID (CLEAR)
== END ==
LOC: M LAB REF 16:39
PROVIDERS: ATTEND Obstetrics & Gynecology
DX: R30.0 Dysuria (principal)

== ENCOUNTER → 2019-08-04 | Outpatient (CLI) | payer OTHER | LOC: M RAD 14:41 | PROVIDERS: ATTEND Family Medicine | DX: Z53.9 Procedure and treatment not carried out, unspecified reason (principal) ==

== ENCOUNTER → 2019-08-18 | Outpatient (CLI) | payer OTHER ==
--- NOTE | 2019-08-18 21:54 | REP ---
Clinical: Sciatica . Technique: AP, lateral, bilateral oblique, and coned-down views. Findings: Alignment and lordosis is maintained. The vertebral bodies including transverse process and spinous processes are intact and normal. There is no evidence for acute fracture / compression injury or subluxation. No evidence for spondylolysis or spondylolisthesis. No significant degenerative change is noted. Impression: Normal lumbosacral spine radiograph series. Electronically Signed by Kofi Wong MD 08/18/2019 09:47 P
== END ==
LOC: M RAD 13:54
PROVIDERS: ATTEND Family Medicine
DX: M54.5 Low back pain (principal)

== ENCOUNTER → 2019-09-15 | Outpatient (REF) | payer OTHER ==
[2019-09-15 15:44] LABS: C REACTIVE PROTEIN QUANTITATIV 0.44 MG/DL (0.00-0.30); RHEUMATOID FACTOR QUANT < 10.0 IU/ML (<15.0)
[2019-09-15 15:47] LABS: BASO # 0.1 10^3/uL (0.0-0.2); BASO % 0.7 % (0.0-1.0); EOS # 0.4 10^3/uL (0.0-0.5); EOS % 4.6 % (0.0-3.0); HEMATOCRIT 42.2 % (36.0-47.0); HEMOGLOBIN 13.6 g/dl (12.0-15.5); LYMPH # 3.2 10^3/uL (1.5-5.0); LYMPH % 35.8 % (24.0-44.0); MEAN CORPUSCULAR HEMOGLOBIN 30.9 pg (27.0-33.0); MEAN CORPUSCULAR HGB CONC 32.2 g/dl (32.0-36.5); MEAN CORPUSCULAR VOLUME 95.9 fl (80.0-96.0); MONO # 0.4 10^3/uL (0.0-0.8); MONO % 4.2 % (0.0-5.0); NEUTROPHILS # 4.8 10^3/uL (1.5-8.5); NEUTROPHILS % 54.2 % (36.0-66.0); PLATELET COUNT, AUTOMATED 240 10^3/uL (150-450); WHITE BLOOD COUNT 8.8 10^3/uL (4.0-10.0)
[2019-09-15 16:25] LABS: ERYTHROCYTE SEDIMENTATION RATE 6 mm/hr (0-20)
[2019-09-18 00:06] LABS: ANTINUCLEAR ANTIBODIES DIRECT Negative (Negative); Lyme Disease IgG/IgM Antibodie <0.91 ISR (0.00-0.90); Lyme Disease IgM Ab Quantitati <0.80 index (0.00-0.79)
== END ==
LOC: M LABDRAW1 13:50
PROVIDERS: ATTEND Orthopaedic Surgery
DX: M54.5 Low back pain (principal)

== ENCOUNTER → 2019-10-11 | Outpatient (CLI) | payer OTHER ==
[2019-10-11 15:25] LABS: CORTISOL AM 12.2 UG/DL (4.3-22.4); PROLACTIN 10.2 NG/ML
== END ==
LOC: M LAB 14:06
PROVIDERS: ATTEND Nurse Practitioner Family
DX: D49.7 Neoplasm of unspecified behavior of endocrine glands and other parts of nervous system (principal)

== ENCOUNTER → 2019-10-25 | Outpatient (CLI) | payer OTHER ==
[~2019-10-25] MED LIST changes: +PROHANCE 279.3MG/ML 5ML VIAL (A9576) As Ordered ONE
--- NOTE | 2019-10-25 13:04 | REP ---
MRI BRAIN WITH AND WITHOUT CONTRAST: Multiple sequences obtain in the axial, coronal, and sagittal planes prior to and following the intravenous administration of 7 mL ProHance. Comparison made with a prior study of 10/13/2018. Once again the brain parenchyma demonstrates normal signal intensity and normal layne-white differentiation. There is no midline shift or mass effect. No signal abnormalities are seen. Brainstem and cerebellum are unremarkable. Seventh and eighth cranial nerve complexes are unremarkable. There is no abnormal brain enhancement. There is no extra-axial fluid collection. Once again there is a cystic lesion in the sella turcica. This is mildly complex. This is unchanged in size and appearance compared to the prior study, measuring 1.7 x 1.4 x 1.7 cm. Pituitary is displaced posteriorly as is the infundibulum. There is again slight displacement of the infundibulum toward the right. There is mild extension into the suprasellar cistern unchanged. Once again there is no compression of the optic chiasm. IMPRESSION: No change in size or appearance of the cystic pituitary lesion compared to the exam of 10/13/2018. 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 Electronically Signed by Basesm Layne MD 10/25/2019 03:30 P
== END ==
LOC: M RAD 09:57
PROVIDERS: ATTEND Nurse Practitioner Family
DX: D49.7 Neoplasm of unspecified behavior of endocrine glands and other parts of nervous system (principal)
CPT/HCPCS: 70553; A9576

== ENCOUNTER → 2020-09-19 | Outpatient (CLI) | payer OTHER ==
[~2020-09-19] MED LIST changes: +GABA-282 PO; -GABA-843 PO; -PROHANCE 279.3MG/ML 5ML VIAL (A9576) As Ordered ONE
[2020-09-19 10:33] LABS: HEMATOCRIT 44.8 % (36.0-47.0); HEMOGLOBIN 14.2 g/dl (12.0-15.5); MEAN CORPUSCULAR HEMOGLOBIN 30.7 pg (27.0-33.0); MEAN CORPUSCULAR HGB CONC 31.7 g/dl (32.0-36.5); PLATELET COUNT, AUTOMATED 240 10^3/uL (150-450); RED BLOOD COUNT 4.62 10^6/uL (4.00-5.40)
[2020-09-19 11:01] LABS: ERYTHROCYTE SEDIMENTATION RATE 3 mm/hr (0-20)
[2020-09-19 11:42] LABS: ALBUMIN 4.1 GM/DL (3.2-5.2); ALT/SGPT 43 U/L (12-78); BILIRUBIN,TOTAL 0.2 MG/DL (0.2-1.0); BLOOD UREA NITROGEN 13 MG/DL (7-18); CALCIUM LEVEL 9.3 MG/DL (8.5-10.1); CARBON DIOXIDE LEVEL 22 MEQ/L (21-32); CHLORIDE LEVEL 108 MEQ/L (98-107); CHOLESTEROL LEVEL 154 MG/DL (<200); CREATININE FOR GFR 0.79 MG/DL (0.55-1.30); GLOMERULAR FILTRATION RATE > 60.0 (>60); GLUCOSE, FASTING 107 MG/DL (70-100); HDL CHOLESTEROL 55 MG/DL (>40); IRON (FE) 110 UG/DL (50-170); LDL CHOLESTEROL 64 MG/DL (<100); NON-HDL-C 99 MG/DL; PERCENT SATURATION 29.3 % (13.2-45.0); POTASSIUM SERUM 4.4 MEQ/L (3.5-5.1); RHEUMATOID FACTOR QUANT < 10.0 IU/ML (<15.0); SODIUM LEVEL 140 MEQ/L (136-145); TOTAL 25(OH) VITAMIN D 16.7 NG/ML (30.0-100.0); TOTAL IRON BINDING CAPACITY 376 UG/DL (250-450); TOTAL PROTEIN 7.3 GM/DL (6.4-8.2); TRIGLYCERIDES LEVEL 177 MG/DL (<150)
== END ==
LOC: M LAB 09:56
PROVIDERS: ATTEND Family Medicine
DX: D64.9 Anemia, unspecified (principal); R53.83 Other fatigue; E03.9 Hypothyroidism, unspecified

== ENCOUNTER → 2021-04-09 | Outpatient (CLI) | payer OTHER ==
[~2021-04-09] MED LIST changes: -DOXY100C37 PO; +DOXY1CAP62 PO
[2021-04-09 12:18] LABS: HEMATOCRIT 41.8 % (36.0-47.0); HEMOGLOBIN 13.7 g/dl (12.0-15.5); MEAN CORPUSCULAR HEMOGLOBIN 31.1 pg (27.0-33.0); MEAN CORPUSCULAR HGB CONC 32.8 g/dl (32.0-36.5); MEAN CORPUSCULAR VOLUME 94.8 fl (80.0-96.0); PLATELET COUNT, AUTOMATED 235 10^3/uL (150-450); RED BLOOD COUNT 4.41 10^6/uL (4.00-5.40); WHITE BLOOD COUNT 7.2 10^3/uL (4.0-10.0)
[2021-04-09 12:55] LABS: ALT/SGPT 28 U/L (12-78); BILIRUBIN,TOTAL 0.3 MG/DL (0.2-1.0); BLOOD UREA NITROGEN 11 MG/DL (7-18); CALCIUM LEVEL 8.9 MG/DL (8.5-10.1); CARBON DIOXIDE LEVEL 27 MEQ/L (21-32); CHLORIDE LEVEL 111 MEQ/L (98-107); CHOLESTEROL LEVEL 133 MG/DL (<200); CHOLESTEROL RISK RATIO 2.607 (<5); CREATININE FOR GFR 0.71 MG/DL (0.55-1.30); GLOMERULAR FILTRATION RATE > 60.0 (>60); GLUCOSE, FASTING 98 MG/DL (70-100); HDL CHOLESTEROL 51 MG/DL (>40); IRON (FE) 54 UG/DL (50-170); LDL CHOLESTEROL 70 MG/DL (<100); NON-HDL-C 82 MG/DL; PERCENT SATURATION 15.7 % (13.2-45.0); POTASSIUM SERUM 4.2 MEQ/L (3.5-5.1); SODIUM LEVEL 142 MEQ/L (136-145); TOTAL IRON BINDING CAPACITY 345 UG/DL (250-450); TOTAL PROTEIN 6.9 GM/DL (6.4-8.2); TRIGLYCERIDES LEVEL 62 MG/DL (<150)
[2021-04-09 12:56] LABS: TOTAL 25(OH) VITAMIN D 31.7 NG/ML (30.0-100.0)
== END ==
LOC: M LAB 11:30
PROVIDERS: ATTEND Family Medicine
DX: R53.83 Other fatigue (principal); D64.9 Anemia, unspecified; E03.9 Hypothyroidism, unspecified

== ENCOUNTER → 2021-04-15 | Outpatient (CLI) | payer OTHER ==
[~2021-04-15] MED LIST changes: +DIPH2.5T15 PO; +ERGO500029 PO; +VENL150C43 PO
== END ==
LOC: M LABSMTC 09:56
PROVIDERS: ATTEND Anesthesiology
DX: Z20.828 Contact with and (suspected) exposure to other viral communicable diseases (principal); Z11.52 Encounter for screening for COVID-19

== ENCOUNTER 2021-04-18 07:19 | Day surgery (SDC) | payer OTHER ==
[~2021-04-18] VITALS: Ht 165.1 cm; Wt 68.0 kg
[~2021-04-18 07:19] MED LIST changes: +LR 1,000 ML IV ONE
[2021-04-18] MEDS ORDERED: ROCURONIUM BROMIDE 50 MG/5 ML VIAL As Ordered ONE ×2 (09:06→10:05)
[2021-04-18] MEDS ORDERED: METOCLOPRAMIDE INJ 10MG/2ML VIAL (J2765 PER 1) As Ordered ONE (09:06)
[2021-04-18] MEDS ORDERED: LIDOCAINE 2% 100MG/5ML SDV (FOR ANES.) As Ordered ONE (09:06)
[2021-04-18] MEDS ORDERED: MIDAZOLAM INJ 2MG/2ML VIAL (J2250 PER 1MG) As Ordered ONE (09:06)
[2021-04-18] MEDS ORDERED: fentaNYL 250 MCG/5 ML INJECTION (J3010) As Ordered ONE (09:06)
[2021-04-18] MEDS ORDERED: propofoL 200 MG/20 ML VIAL As Ordered ONE (09:06)
[2021-04-18] MEDS ORDERED: KETOROLAC 60MG 2ML VIAL As Ordered ONE (09:06)
[2021-04-18] MEDS ORDERED: dexameTHASONE 4 MG/ML 1ML VIAL (J1100 PER 1MG) As Ordered ONE (09:06)
[2021-04-18] MEDS ORDERED: ONDANSETRON 4MG/2ML VIAL As Ordered ONE (09:06)
[2021-04-18] MEDS ORDERED: SUGAMMADEX SODIUM 500 MG/5 ML VIAL (BRIDION) As Ordered ONE (09:06)
[2021-04-18] MEDS ORDERED: ACETAMINOPHEN 1000MG 100ML IV BTL (OFIRMEV) (J0131 PER 10MG) As Ordered ONE (09:29)
[2021-04-18] MEDS ORDERED: HYDROmorphone HCL 2 MG/ML 1ML VIAL As Ordered ONE (10:40)
[2021-04-18] MEDS ORDERED: METOCLOPRAMIDE INJ 10MG/2ML VIAL (J2765 PER 1) IV PRN (11:20)
[2021-04-18] MEDS ORDERED: oxyCODONE 5MG TAB PO PRN (11:20)
[2021-04-18] MEDS ORDERED: ONDANSETRON 4MG/2ML VIAL IV PRN (11:20)
[2021-04-18] MEDS ORDERED: LR 1,000 ML IV SCH (11:20)
[2021-04-18] MEDS ORDERED: fentaNYL 100 MCG/2 ML INJECTION (J3010) IV PRN (11:20)
[2021-04-18] MEDS ORDERED: HYDROMORPHONE HCL 0.5 MG/ 0.5 ML SYRINGE (J1170 PER 1) IV PRN (11:20)
[2021-04-18 13:25] VITALS: BP 126/78
--- NOTE | 2021-04-18 13:52 | RO ---
OPERATIVE NOTE DATE OF OPERATION: 04/18/2021 PREOPERATIVE DIAGNOSIS/INDICATION FOR SURGERY: Pain and history of endometriosis. POSTOPERATIVE DIAGNOSIS: Endometriosis. FINDINGS: As expected, she had endometriosis in the posterior cul-de-sac similar to previously, although she did not have any endometriosis visible on any of the bowel. PROCEDURE: Laparoscopy with laser destruction of endometriotic lesions. SURGEON: Elizabeth Mina M.D.. REAL ESTATE SALES AGENT: None. SPECIMENS: None. ANESTHESIA: General tracheal anesthesia. BRIEF DESCRIPTION OF PROCEDURE AND FINDINGS: Uzma was brought to the operating where sufficient general tracheal anesthesia was induced and she was prepped and draped in position with the usual sterile fashion with the uterine manipulator placed after the uterus had been sounded to 7.5 in this nulliparous patient and the bladder was also emptied of approximately 20 mL of urine. Attention was then turned to the abdomen. A transverse semilunar incision was made below the umbilicus over the line of her previous laparoscopy scars. Sharp and blunt dissection were continued to the subcutaneous tissues to the level of the rectus fascia, which was elevated with Torin clamps, incised carefully using the scalpel, secured with 0 Vicryl retention sutures and then the peritoneum was entered under direct visualization in an open laparoscopic technique and the Marcellus cannula was placed and secured with the 0 Vicryl retention sutures. Co2 insufflation was then begun. After adequate Co2 insufflation, the peritoneal cavity was visualized. There were normal shiny peritoneal surfaces throughout. There was no ascites, exudates nor excrescences. There were in the posterior cul-de-sac some evidence of scaring from the previous surgery. There did not appear to be a recurrence of the implants that had previously been seen near the ureters and I did not see any endometriosis on the loops of the bowel unlike previously. She did have a couple of implants on her ovaries themselves and some in the center of the cul-de-sac similar, but in slightly different places than previously. These areas were readily treated with the laser. We did take care not to over manipulate the tubes, which are normal in appearance in this young woman who still wants fertility. The ovaries were able to be manipulated again. There is a little bit of scar tissue in the left ovarian fossa without an implant in the fossa itself, but the left ovary had a couple of implants externally that we were able to safely treat with the laser. They are not in an area where there was a risk of over shoot thankfully and again we did not go and manipulate very close to the tubes, but fortunately we did not have to. After treating with the laser those implants that we could see, which were thankfully somewhat less than previous and evaluating the rest of the pelvis, the anterior cul-de-sac and the upper abdomen, the procedure was then ended. ESTIMATED BLOOD LOSS DURING THE PROCEDURE: Maybe 5 mL. FLUID REPLACEMENT: Crystalloid. COMPLICATIONS: None. CONDITION AND DISPOSITION: Uzma tolerated the procedure well and was recovering in the recovery room in good condition.
== END 2021-04-18 13:30 | disposition home or self-care (01) ==
LOC: M SDC 07:19
PROVIDERS: ATTEND Obstetrics & Gynecology
DX: N80.9 Endometriosis, unspecified (principal); R10.32 Left lower quadrant pain; K58.8 Other irritable bowel syndrome; D64.9 Anemia, unspecified; F17.218 Nicotine dependence, cigarettes, with other nicotine-induced disorders; F41.9 Anxiety disorder, unspecified; F32.9 Major depressive disorder, single episode, unspecified; G43.909 Migraine, unspecified, not intractable, without status migrainosus; Z79.899 Other long term (current) drug therapy; Z88.2 Allergy status to sulfonamides
CPT/HCPCS: 36415; 58662; 84702; J0131; J1100; J1885; J2250; J2405; J2765; J3010

== ENCOUNTER → 2021-08-28 | Outpatient (CLI) | payer OTHER ==
[~2021-08-28] MED LIST changes: -DICY20TA11 PO; +DICY20TA20 PO; +DOXY-443 PO; -DOXY1CAP62 PO; -IBUP200T45 PO; +IBUP200T46 PO; -LR 1,000 ML IV ONE
== END ==
LOC: M RAD 14:14
PROVIDERS: ATTEND Family Medicine
DX: J40 Bronchitis, not specified as acute or chronic (principal)

== ENCOUNTER → 2022-03-12 | Outpatient (RCR) | payer OTHER ==
[~2022-03-12] MED LIST changes: +HYDR-3713 PO
== END ==
LOC: M PT 12:38
PROVIDERS: ATTEND Otolaryngology
DX: M26.609 Unspecified temporomandibular joint disorder, unspecified side (principal)

== ENCOUNTER 2022-04-09 13:43 | Outpatient (RCR) | payer OTHER | END 2022-04-11 | LOC: M PT 13:43 | PROVIDERS: ATTEND Otolaryngology | DX: M26.609 Unspecified temporomandibular joint disorder, unspecified side (principal) ==

== ENCOUNTER 2022-04-16 14:24 | Outpatient (RCR) | payer OTHER | END 2022-05-12 | LOC: M PT 14:24 | PROVIDERS: ATTEND Otolaryngology | DX: M26.609 Unspecified temporomandibular joint disorder, unspecified side (principal) ==

== ENCOUNTER → 2022-06-25 | Outpatient (CLI) | payer OTHER | LOC: M RAD 08:49 | PROVIDERS: ATTEND Family Medicine | DX: D64.9 Anemia, unspecified (principal); R53.83 Other fatigue; N83.202 Unspecified ovarian cyst, left side ==

== ENCOUNTER → 2022-06-28 | Outpatient (CLI) | payer OTHER ==
[2022-06-28 11:53] LABS: HEMATOCRIT 43.7 % (36.0-47.0); HEMOGLOBIN 14.1 g/dl (12.0-15.5); MEAN CORPUSCULAR HEMOGLOBIN 31.2 pg (27.0-33.0); MEAN CORPUSCULAR HGB CONC 32.3 g/dl (32.0-36.5); MEAN CORPUSCULAR VOLUME 96.7 fl (80.0-96.0); PLATELET COUNT, AUTOMATED 268 10^3/uL (150-450); RED BLOOD COUNT 4.52 10^6/uL (4.00-5.40); WHITE BLOOD COUNT 8.1 10^3/uL (4.0-10.0)
[2022-06-28 12:05] LABS: HEMOGLOBIN A1c 4.6 % (4.0-6.0)
[2022-06-28 12:20] LABS: ALBUMIN 4.2 G/DL (3.2-5.2); ALKALINE PHOSPHATASE 94 U/L (46-116); ALT/SGPT 44 U/L (7.0-40); AST/SGOT 30 U/L (<34); BILIRUBIN,TOTAL 0.3 MG/DL (0.3-1.2); BLOOD UREA NITROGEN 9 MG/DL (9-23); CALCIUM LEVEL 8.8 MG/DL (8.5-10.1); CARBON DIOXIDE LEVEL 22 MMOL/L (20-31); CHLORIDE LEVEL 108 MMOL/L (98-107); CHOLESTEROL LEVEL 169 MG/DL (<200); CHOLESTEROL RISK RATIO 2.84 (<5); CREATININE FOR GFR 0.71 MG/DL (0.55-1.30); GLOMERULAR FILTRATION RATE > 60.0 (>60); GLUCOSE, FASTING 98 MG/DL (60-100); HDL CHOLESTEROL 59.3 MG/DL (>40); LDL CHOLESTEROL 73.5 MG/DL (<100); NON-HDL-C 110 MG/DL; POTASSIUM SERUM 4.2 MMOL/L (3.5-5.1); SODIUM LEVEL 139 MMOL/L (136-145); TOTAL PROTEIN 7.1 G/DL (5.7-8.2); TRIGLYCERIDES LEVEL 181 MG/DL (<150)
[2022-06-28 12:22] LABS: THYROID STIMULATING HORMONE 1.706 uIU/ML (0.55-4.78)
== END ==
LOC: M LAB 11:33
PROVIDERS: ATTEND Family Medicine
DX: D64.9 Anemia, unspecified (principal)

== ENCOUNTER → 2023-02-17 | Outpatient (CLI) | payer OTHER ==
[~2023-02-17] MED LIST changes: +TIZA10TA PO; +TRAN650T PO; +VENL75CA2 PO
== END ==
LOC: M WHC 12:24
PROVIDERS: ATTEND Obstetrics & Gynecology
DX: N83.8 Other noninflammatory disorders of ovary, fallopian tube and broad ligament (principal)

== ENCOUNTER 2023-02-23 09:56 | Inpatient (IN) | payer OTHER ==
[~2023-02-23] VITALS: Ht 165.1 cm; Wt 73.4 kg
[2023-02-23] VITALS (7 sets, daily range): BP systolic 120–136; BP diastolic 70–79; TEMP 97.6–98.8; O2SAT 96–98
[~2023-02-23 09:56] MED LIST changes: +ceFAZolin SOD 2 GM in IV 1 EA IV ONE
[2023-02-23 10:36] LABS: HEMATOCRIT 45.3 % (36.0-47.0); HEMOGLOBIN 14.6 g/dl (12.0-15.5); MEAN CORPUSCULAR HEMOGLOBIN 30.7 pg (27.0-33.0); MEAN CORPUSCULAR HGB CONC 32.2 g/dl (32.0-36.5); MEAN CORPUSCULAR VOLUME 95.4 fl (80.0-96.0); PLATELET COUNT, AUTOMATED 281 10^3/uL (150-450); RED BLOOD COUNT 4.75 10^6/uL (4.00-5.40); WHITE BLOOD COUNT 8.8 10^3/uL (4.0-10.0)
[2023-02-23] MEDS ORDERED: LIDOCAINE 2% 100MG/5ML SDV (FOR ANES.) As Ordered ONE (10:56)
[2023-02-23] MEDS ORDERED: propofoL 200 MG/20 ML VIAL As Ordered ONE (10:56)
[2023-02-23] MEDS ORDERED: fentaNYL 100 MCG/2 ML INJECTION As Ordered ONE (10:56)
[2023-02-23] MEDS ORDERED: MIDAZOLAM INJ 2MG/2ML VIAL As Ordered ONE (10:56)
[2023-02-23] MEDS ORDERED: ROCURONIUM BROMIDE 50MG/5ML VIAL As Ordered ONE ×2 (10:56→14:02)
[2023-02-23] MEDS ORDERED: LR 1,000 ML IV SCH ×2 (13:05→15:30)
[2023-02-23] MEDS ORDERED: SCOPOLAMINE 1MG TRANSDERMAL PATCH TOP ONE (13:05)
[2023-02-23] MEDS ORDERED: SILVER NITRATE APPLICATOR (1 = QTY 10) As Ordered ONE (13:06)
[2023-02-23] MEDS ORDERED: METHYLENE BLUE 0.5% (5MG/ML) 10 ML AMP (PROVAYBLUE) As Ordered ONE (13:06)
[2023-02-23] MEDS ORDERED: ONDANSETRON 4MG 2ML VIAL As Ordered ONE (13:27)
[2023-02-23] MEDS ORDERED: KETOROLAC 60MG 2ML VIAL As Ordered ONE (13:28)
[2023-02-23] MEDS ORDERED: HYDROmorphone HCL 2MG/ML 1ML VIAL As Ordered ONE (13:48)
[2023-02-23] MEDS ORDERED: METOCLOPRAMIDE INJ 10MG/2ML VIAL As Ordered ONE (14:02)
[2023-02-23] MEDS ORDERED: ACETAMINOPHEN 1000MG 100ML IV BAG As Ordered ONE (14:02)
[2023-02-23] MEDS ORDERED: fentaNYL 100 MCG/2 ML INJECTION IV PRN (15:30)
[2023-02-23] MEDS ORDERED: ONDANSETRON 4MG 2ML VIAL IV PRN ×2 (15:30→15:55)
[2023-02-23] MEDS ORDERED: PERCOCET 5MG/325MG TAB PO PRN ×2 (15:55)
[2023-02-23] MEDS ORDERED: MORPHINE 4 MG/ML 1ML VIAL IV PRN (15:55)
[2023-02-23] MEDS ORDERED: oxyCODONE 5MG TAB PO PRN (16:05)
[2023-02-23] MEDS ORDERED: HYDROMORPHONE HCL 0.5 MG/ 0.5 ML SYRINGE IV PRN (16:05)
[2023-02-23] MEDS ORDERED: COLA100C5 PO (16:07)
[2023-02-23] MEDS ORDERED: PERCOCET PO (16:07)
[2023-02-23] MEDS ORDERED: IBUP80TA PO (16:07)
[2023-02-23] MEDS: LR 1,000 ML IV SCH ×2 (16:35→20:00)
[2023-02-23] MEDS ORDERED: tiZANidine 4 MG TAB PO PRN (17:40)
[2023-02-23] MEDS ORDERED: ALPRAZolam 0.5 MG TAB PO PRN (17:40)
[2023-02-23] MEDS ORDERED: VENLAFAXINE **XR** 75MG CAPSULE PO SCH (19:30)
[2023-02-23] MEDS ORDERED: KETOROLAC 30 MG/ML 1ML VIAL IV SCH (20:00)
[2023-02-23] MEDS ORDERED: DOCUSATE SODIUM 100MG CAPSULE PO SCH (21:00)
[2023-02-24] VITALS: BP 123/65; TEMP 97.5; O2SAT 96
[2023-02-24] MEDS ORDERED: IBUPROFEN 800 MG TAB PO SCH (16:00)
== END 2023-02-24 00:55 | disposition home or self-care (01) | DRG 513 ==
LOC: M SDC 09:56 → M RR INP 15:53 → M PED 16:35
PROVIDERS: ADMIT Obstetrics & Gynecology; ATTEND Obstetrics & Gynecology
PROC: 0UT14ZZ Resection of Left Ovary, Percutaneous Endoscopic Approach (ICD-10-PCS; 2023-02-23)
PROC: 0UT74ZZ Resection of Bilateral Fallopian Tubes, Percutaneous Endoscopic Approach (ICD-10-PCS; 2023-02-23)
PROC: 8E0W4CZ Robotic Assisted Procedure of Trunk Region, Percutaneous Endoscopic Approach (ICD-10-PCS; 2023-02-23)
PROC: 0UT94ZZ Resection of Uterus, Percutaneous Endoscopic Approach (ICD-10-PCS; principal; 2023-02-23 11:35)
PROC: 0UTC4ZZ Resection of Cervix, Percutaneous Endoscopic Approach (ICD-10-PCS; 2023-02-23 11:35)
DX: N80.9 Endometriosis, unspecified (principal); N93.9 Abnormal uterine and vaginal bleeding, unspecified; R10.2 Pelvic and perineal pain

== ENCOUNTER → 2023-07-02 | Outpatient (CLI) | payer MEDICAID, OTHER ==
[~2023-07-02] MED LIST changes: +COLA100C5 PO; +PERCOCET PO; -ceFAZolin SOD 2 GM in IV 1 EA IV ONE
== END ==
LOC: M RAD 08:35
PROVIDERS: ATTEND Family Medicine
DX: J18.0 Bronchopneumonia, unspecified organism (principal)

== ENCOUNTER → 2024-03-03 | Outpatient (CLI) | payer OTHER ==
[~2024-03-03] MED LIST changes: +DIPH1TAB81 PO; -DIPH2.5T15 PO; +DOXY-323 PO; -DOXY-443 PO
== END ==
LOC: M SOG 08:01
PROVIDERS: ATTEND Physician Assistant
DX: M79.644 Pain in right finger(s) (principal)

== ENCOUNTER → 2024-08-25 | Outpatient (CLI) | payer OTHER ==
[~2024-08-25] MED LIST changes: -DOXY-323 PO; +DOXY-441 PO; +GABA-1172 PO; -GABA-282 PO
== END ==
LOC: M LAB 14:15
PROVIDERS: ATTEND Family Medicine
DX: Z00.00 Encounter for general adult medical examination without abnormal findings (principal)

== ENCOUNTER → 2025-02-09 | Outpatient (REF) | payer OTHER ==
[~2025-02-09] MED LIST changes: -PROZ20CA11 PO; +PROZ20CA12 PO
[2025-02-09 17:50] LABS: OSMOLALITY SERUM 297 MOSM/KG (275-295)
[2025-02-09 17:51] LABS: CALCIUM LEVEL 9.3 MG/DL (8.5-10.1); CARBON DIOXIDE LEVEL 28 MMOL/L (20-31); CHLORIDE LEVEL 104 MMOL/L (98-107); CREATININE FOR GFR 0.79 MG/DL (0.55-1.30); GLOMERULAR FILTRATION RATE > 90.0 (>60); POTASSIUM SERUM 4.1 MMOL/L (3.5-5.1); SODIUM LEVEL 140 MMOL/L (136-145)
[2025-02-09 17:53] LABS: ESTRADIOL 84.9 PG/ML; LUTEINIZING HORMONE 6.5 mIU/ML; PROLACTIN 15.00 NG/ML
[2025-02-09 17:55] LABS: CORTISOL AM 13.8 UG/DL (4.3-22.4)
[2025-02-09 18:23] LABS: SODIUM,RANDOM URINE 43 MMOL/L
== END ==
LOC: M SFHCLERA 08:06
PROVIDERS: ATTEND Internal Medicine
DX: D35.2 Benign neoplasm of pituitary gland (principal); R55 Syncope and collapse

== ENCOUNTER → 2025-03-23 | Outpatient (CLI) | payer OTHER ==
[~2025-03-23] MED LIST changes: -IBUP-1022; +IBUP600T42; +PROHANCE 279.3MG/ML 5ML VIAL As Ordered ONE
== END ==
LOC: M RAD 06:29
PROVIDERS: ATTEND Internal Medicine
DX: D35.2 Benign neoplasm of pituitary gland (principal)
CPT/HCPCS: 70553; A9576